=== PATIENT | female | born 1965 | race Caucasian/White ===

== ENCOUNTER 2025-04-09 14:43 | Outpatient (AMB) | payer OTHER, SELFPAY ==
--- NOTE | 2025-04-09 14:55 | A.OFFPC_ITS ---
Vital Signs 04/09/25 14:56 Height 5 ft Weight 188 lb 4 oz BMI 36.8 BP 130/80 Blood Pressure Location Lt brachial Position Sitting Respiration 16 Pulse 74 Pulse Source Pulse Oximeter Temp 97.5 F Temp Source Temporal Artery Scan Pulse Oximetry (%) 94 Oxygen Delivery Method Room Air Intake Visit Reasons: Re-establish care [employer] Operator Required: No Accompanied by: Self / Same As Patient Allergies morphine (Morphine) Allergy (Mild, Unverified 02/18/20 16:31) ITCHING Sulfa (Sulfonamide Antibiotics) Allergy (Mild, Unverified 02/18/20 16:31) HIVES tramadol Allergy (Unknown, Verified 06/26/12 00:00) pruritis fexofenadine (From [place]) Adverse Reaction (Intermediate, Verified 04/09/25 15:32) Chest Pain Medication List - Last Reconciled 04/09/25 by Rosalba Gomez MD acyclovir 400 mg PO TID albuterol sulfate 2.5 mg continuous nebulization Q6H PRN amlodipine 10 mg PO DAILY aripiprazole 2 mg PO DAILY PRN atorvastatin 20 mg PO DAILY blood sugar diagnostic (FreeStyle Lite Strips) As directed budesonide-formoterol 160-4.5 mcg/actuation 2 puffs inhalation BID cholecalciferol (vitamin D3) 25 mcg PO DAILY citalopram 10 mg PO DAILY citalopram mg PO ezetimibe 10 mg PO DAILY fluticasone propionate 50 mcg/actuation sprays intranasal ipratropium-albuterol 0.5 mg-3 mg(2.5 mg base)/3 mL 3 mL inhalation QID omeprazole 40 mg PO DAILY Tobacco use date assessed: 04/09/25 Dental Screening Dental Screen Date: 04/09/25 Did you have a dental visit in the last 12 months?: Yes Did you have a dental problem in the last 6 months where you did not have access to dental care?: No Was dental information given to patient?: Patient has dentist HPI HPI Comments History of Present Illness Details The patient is a 59-year-old female presenting to reestablish care. Urinary Tract Infection (Recurrent): Frequent UTIs since October, hospitalization due to severe infection, and recurrent symptoms managed by antibiotics with subsequent yeast infection. Urinalysis periodically indicates infection. Asthma-stable Intrusive Thoughts: Stress-induced intrusive thoughts, exacerbated by recent personal challenges. Abilify trialed, patient adjusted dosage due to side effects. Notes when she socrates es only 1mg had some benefit in symptoms. Stress-Induced Breakouts: Association of herpetic breakouts with stress, managed with acyclovir. Stressors include personal life events. Depression: Tendency to depressive episodes exacerbated by personal circumstances. Medication effective when adjusted to patient tolerance. Diabetes mellitus history- A1c measured at 5.8, indicating prediabetes. Past discussions about weight and its management. Vaginal Dryness: Related to menopause, contributing to UTI risk. Hormonal impact acknowledged. Family Stress: Stress related to granddaughter's recent mental health crisis. Sleep apnea- has not been compliant with cpap, will schedule sleep clinic appt Hyperlipidemia- on statin HTN- on amlodipine Vitamin d deficiency/anemia- due for repeat labs Social History: - Resides alone; a friend stayed for thr ee months, causing significant stress - Concerned about weight management; marla or interest in Ozempic for management - Personal stress related to a granddaug hter's mental health crisis Review of Systems - Respiratory: Denies nasal congestion a nd throat issues - Gastrointestinal: Reports intermittent heartburn; denies nausea or constipa tion - Genitourinary: Reports recurrent UTIs and vaginal dryness - Psychological: Reports occasional intr usive thoughts and depression Physical Exam - Ears- Bilateral cerumen impaction -Respiratory- Lungs clear bilaterally -Cardiovascular- Regular heart sounds, s oft murmur noted - Abdomen: SNTND, +BS - Extremities: no edema bilaterally Assessment and Plan 1. Urinary Tract Infection (Recurrent) - Follow-up with urogynecologist - Monitor symptoms 2. Intrusive Thoughts - Low-dose Abilify per pt tolerance - Stress management support 3. Stress-Induced Breakouts - Continue acyclovir as directed 4. Depression - Continue to monitor 5. Elevated Hemoglobin A1c indicating Pr ediabetes - Weight management plan and dietary geoffrey nges - Consider Ozempic if approved by insura nce 6. Vaginal Dryness - urogynecology consult pending 7. Sleep apnea- follow up with sleep med icieb 8. Recurrent infections- check immunoglo bulin levels Follow up in 3 months Discussion Notes I discussed with the patient the recurrence of urinary tract infections and the urogynecologist consultation to address persistent symptoms. We explored the use of Abilify for managing intrusive thoughts, ensuring a dosage that decreases side effects, and the continuity with stress management practices. We acknowledged the patient?s elevated A1c and prediabetes status, emphasizing weight management and dietary changes. The potential for Ozempic was contingent on insurance approval. Discussions included the management of vaginal dryness possibly via topical therapy, and stress was attributed to family issues that need parallel support. Patient Instructions - Continue taking Abilify at the dose yo u tolerate best. - Use acyclovir as needed for any break outs. - Work on diet and weight management to help with your blood sugar levels. - Discuss options for treating vaginal d ryness with your urogynecologist. - Focus on stress management techniques to ease overall stress. - Bring your CPAP machine to appointment s for further evaluation if needed. COUNT INCLUDES THE [facility] Medical History (Updated 04/09/25 @ 17:27 by Rosalba Gomez MD) Primary hypertension Vitamin D deficiency Recurrent infections Iron deficiency anemia Fibromyalgia UTI (urinary tract infection) Hyperlipidemia, unspecified Diabetes mellitus type 2 in obese Asthma Surgical History (Updated 04/07/25 @ 17:42 by Naya Baocn) History of colonoscopy (~08/25/18) Social History Housing: House Patient Tobacco Use Status: Former Tobacco user e-Cigarette/Vaping Use: Never Used service: No Current occupational status: disabled Questionnaire AUDIT C Alcohol Use Questionnaire (AUDIT-C) 1. How often do you have a drink containing alcohol?: Never 3. How often do you have six or more drinks on one occasion?: Never Total Score: 0 Physical exam (Primary Care) Vital Signs: Last Vital Signs Temp 97.5 F 04/09/25 14:56 Pulse 74 04/09/25 14:56 Resp 16 04/09/25 14:56 BP 130/80 04/09/25 14:56 Pulse Ox 94 04/09/25 14:56 Oxygen Delivery Method Room Air 04/09/25 14:56 BMI result Body Mass Index 36.8 Tobacco/Smoking Status: Tobacco use Status Tobacco use date assessed 04/09/25 04/09/25 15:05 Patient Tobacco Use Status Former Tobacco user 04/09/25 15:05 e-Cigarette/Vaping Use Never Used 04/09/25 15:05 Coding Level of Care Code Est Pt Level 4 (22519) Complex EM visit Add On G2211 Diagnoses Diabetes mellitus type 2 in obese E11.69; E66.9 Asthma, unspecified asthma severity, unspecified whether complicated, unspecified whether persistent J45.909 Asthma severity: unspecified severity Asthma persistence: unspecified Asthma complication type: unspecified Fibromyalgia M79.7 Hyperlipidemia, unspecified hyperlipidemia type E78.5 Hyperlipidemia type: unspecified Iron deficiency anemia, unspecified iron deficiency anemia type D50.9 Iron deficiency anemia type: unspecified iron deficiency Vitamin D deficiency E55.9 Assessment & Plan Assessment & Plan (1) Diabetes mellitus type 2 in obese: Code(s): E11.69 - Type 2 diabetes mellitus with other specified complication; E66.9 - Obesity, unspecified Category: Medical (2) Asthma: Code(s): J45.909 - Unspecified asthma, uncomplicated Category: Medical Qualifiers: Asthma severity: unspecified severity Asthma persistence: unspecified Asthma complication type: unspecified Qualified Code(s): J45.909 - Unspecified asthma, uncomplicated (3) Fibromyalgia: Code(s): M79.7 - Fibromyalgia Category: Medical (4) Hyperlipidemia, unspecified: Code(s): E78.5 - Hyperlipidemia, unspecified Category: Medical Qualifiers: Hyperlipidemia type: unspecified Qualified Code(s): E78.5 - Hyperlipidemia, unspecified (5) Iron deficiency anemia: Code(s): D50.9 - Iron deficiency anemia, unspecified Category: Medical Qualifiers: Iron deficiency anemia type: unspecified iron deficiency Qualified Code(s): D50.9 - Iron deficiency anemia, unspecified (6) Vitamin D deficiency: Code(s): E55.9 - Vitamin D deficiency, unspecified Category: Medical Plan Plan - Follow up with urogynecology for UTI - Continue Abilify at adjusted dose - Continue acyclovir for outbreaks - Monitor depression, consider psychiatry - Continue to monitor weight management for prediabetes Orders: Orders Ferritin Today D50.9 - Iron deficiency anemia, unspecified Vitamin D 25-OH Total Today E55.9 - Vitamin D deficiency, unspecified Complete Blood Count Auto Diff Today D50.9 - Iron deficiency anemia, unspecified, E11.69 - Type 2 diabetes mellitus with other specified complication, E66.9 - Obesity, unspecified, M79.7 - Fibromyalgia TSH reflex Free T4 Today E11.69 - Type 2 diabetes mellitus with other specified complication, E66.9 - Obesity, unspecified, E78.5 - Hyperlipidemia, unspecified, J45.909 - Unspecified asthma, uncomplicated, M79.7 - Fibromyalgia Hemoglobin A1c Today E11.69 - Type 2 diabetes mellitus with other specified complication, E66.9 - Obesity, unspecified, E78.5 - Hyperlipidemia, unspecified, J45.909 - Unspecified asthma, uncomplicated, M79.7 - Fibromyalgia Comprehensive Met. Panel Today E11.69 - Type 2 diabetes mellitus with other specified complication, E66.9 - Obesity, unspecified, E78.5 - Hyperlipidemia, unspecified, J45.909 - Unspecified asthma, uncomplicated, M79.7 - Fibromyalgia Lipid Panel Today E11.69 - Type 2 diabetes mellitus with other specified complication, E66.9 - Obesity, unspecified, E78.5 - Hyperlipidemia, unspecified, J45.909 - Unspecified asthma, uncomplicated, M79.7 - Fibromyalgia IRON PROFILE Today D50.9 - Iron deficiency anemia, unspecified, E78.5 - Hyperlipidemia, unspecified Immunoglobulin G Subclasses Today B99.9 - Unspecified infectious disease Medications: New carbamide peroxide 6.5% (Debrox) 5 drps otic (ears) BID 15 mL 0RF 4 days cetirizine (All Day Allergy (cetirizine)) 10 mg PO DAILY PRN 30 tabs 5RF allergy symptoms
[2025-04-09 14:56] VITALS: BP 130/80; PULSE 74; RESP 16; TEMP 36.4; O2SAT 94; BMI 36.8
--- OUTSIDE RECORDS SUMMARY | 2025-04-09 16:11 | XMS_ITS | Data Portability ---
Author Organization [facility] [employer] [facility] Address [address] [place] [phone] Care Team Providers Care Leather Cartridge Belt Maker Name Role Phone HIM CCA OTHER SANDEEP CHAPARRO Primary Care Provider [phone] Assessment Encounter Date Assessment Date Assessment LastModified by Organization Details LastModified Time 06/29/2024 06/29/2024 I provided real -time medical direction via phone for this encounter, and was available for additional phone based assistance as needed. I have reviewed and agree with the Assessment and Plan as documented by the Tax Record Clerk. We discussed the diagnostic uncertainty of home visits and the risk associated with this. The patient given the opportunity to ask questions. [email or web address] Not available 06/29/2024 18:56:15 Plan of Treatment Reminders Order Date Submit Date Provider Last Modified By Organization Details Last Modified Time Details Appointments None recorded. Lab rapid SARS CoV 2 Ag, QL IA, respiratory specimen 2024 [email or web address], [address] 18:57:21 rapid flu (A+B) 2024 025 [email or web address] [address], [address] 18:57:20 glucose, fingerstick , blood 2024 025 [email or web address] [address], [address] [place] [address] 18:57:21 Referral None recorded. Procedures None recorded. Surgeries None recorded. Imaging None recorded. Medication Orders ipratropium 0.5 mg-albutero l 3 mg (2.5 mg base)/3 mL nebulizatio n soln 2024 025 [email or web address] [id number], [address] [place], [address], 18:57:21 methylpredn isolone sod succ (PF) 125 mg/2 mL solution for injection 2024 025 [email or web address] [id number], [address] [facility] [place], [address], 18:57:20 albuterol sulfate 2.5 mg/3 mL (0.083 %) solution for nebulizatio n 2024 025 [email or web address] [id number], [address] [place], [address], 18:57:20 Patient TargetsNo targets recorded. Patient Instructions Encounter Date Encounter Id Patient Instructions Last Modified By Organization Details Last Modified Time 06/29/2024 [id number] oxygen therapy* [email or web address] Not availabl e 06/29/2024 19:00:10 Reason for Referral None Reported. Results Created Date Observation Date Name Description Value Unit Range Abnormal Flag Note LastModifiedBy Organization Detail LastModifiedTime 06/29/1906/29/2024 gluco se, finge rstic k, blood Blood Glucose: mg/dl 128 Not Available [facility] [address] [place] [address], [phone] 06/29/2024 15:58:45 06/29/1906/29/2024 rapid flu (A+B) Flu negati ve Not Available [facility] ed [address] [place] [address], [phone] 06/29/2024 15:58:41 06/29/1906/29/2024 rapid SARS CoV 2 Ag, QL IA, respi rator y speci men rapid SARS CoV 2 Ag, QL IA, respiratory specimen negati ve Not Available Main - [facility] ed [address] [place] [address], [address] 06/29/2024 15:58:40 Result Notes None recorded. Medical Equipment None Reported. Allergies Allergen ID Allergen Name Allergen Category Reaction Reaction Severity Criticality Documentation Date Start Date Code Code System Note Provider Name and Address Organization Details Recorded Time 69025 sulfameth oxazole medicatio n Not available Not available Not available 06/29/2024 80316 RxNorm Bactr im Millie King MD [address] [place] [address],[address], [place], [address], [facility] 15:56:06 64646 acetamino phen / oxycodone medicatio n Not available Not available Not available 06/29/2024 90168 3 RxNorm Not Available [facility] production 15:02:51 29978 Lamictal medicatio n Not available Not available Not available 06/29/2024 60922 2 RxNorm Not Available [facility] 15:02:51 46535 Zoloft medicatio n Not available Not available Not available 06/29/2024 89920 RxNorm Millie King MD [address] [place] [address],[address], [place], [address], [employer] 15:56:10 Medications Name Sig Start Date Stop Date Status Note LastModified by Organization Details LastModified Time Vitamin B-2 100 mg tablet active Not Available Not Available Not Available atorvastatin 20 mg tablet active Not Available Not Available Not Available ipratropium 0.5 mg-albuterol 3 mg (2.5 mg base)/3 mL nebulization soln Inhale 3 mL by nebulizatio n route. 2024 active Not Available Not Available Not Avai lable albuterol sulfate 2.5 mg/3 mL (0.083 %) solution for nebulization Inhale 3 mL by nebulizatio n route. 2024 active Not Available Not Available Not Avai lable cetirizine 10 mg tablet active Not Available Not Available Not Available atorvastatin 10 mg tablet active Not Available Not Available Not Available citalopram 10 mg tablet active Not Available Not Available Not Available prednisone 20 mg tablet TAKE 2 TABLETS BY MOUTH EVERY DAY FOR 5 DAYS active Not Available Not Available No t Available penicillin V potassium 500 mg tablet TAKE 1 TABLET BY MOUTH TWICE A DAY WITH FOOD FOR 10 DAYS active Not Available Not Available No t Available clopidogrel 75 mg tablet active Not Available Not Available Not Available omeprazole 40 mg capsule,agrrett yed release active Not Available Not Available Not Available ketorolac 10 mg tablet TAKE 1 TABLET BY MOUTH EVERY 6 HOURS FOR PAIN active Not Available Not Available No t Available citalopram 20 mg tablet active Not Available Not Available Not Available amlodipine 10 mg tablet active Not Available Not Available Not Available fluticasone propionate 50 mcg/actuatio n nasal spray,suspen jimmy active Not Available Not Available Not Available amoxicillin 875 mg-potassium clavulanate 125 mg tablet TAKE 1 TABLET BY MOUTH TWICE A DAY FOR 7 DAYS, TAKE WITH FOOD active Not Available Not Available No t Available ezetimibe 10 mg tablet active Not Available Not Available No t Available cyclobenzapr ine 5 mg tablet TAKE 1 TABLET BY MOUTH THREE TIMES A DAY NEEDED FOR MUSCLE SPASM active Not Available Not Available No t Available FreeStyle Lite Strips active Not Available Not Available Not Available levocetirizi ne 5 mg tablet TAKE 1 TABLET BY MOUTH EVERY EVENING active Not Available Not Available No t Available methylpredni solone sod succ (PF) 125 mg/2 mL solution for injection Take 125 mg by injection route. 2024 active Not Available Not Available Not Avai lable Trulicity 1.5 mg/0.5 mL subcutaneous pen injector INJECT 0.5 ML SUBCUTANEOU S INJECTION EVERY WEEK, ROTATE INJECTION SITES active Not Available Not Available No t Available Trulicity 0.75 mg/0.5 mL subcutaneous pen injector active Not Available Not Available Not Available Ozempic 1 mg/dose (4 mg/3 mL) subcutaneous pen injector INJECT 1 MG SUBCUTANEOU SLY EVERY WEEK. DOSE CHANGE 1MG ONCE PER WEEK active Not Available Not Available No t Available Ozempic 0.25 mg or 0.5 mg (2 mg/3 mL) subcutaneous pen injector INJECT 0.5 MG SUBCUTANEOU S INJECTION EVERY WEEK *ROTATE INJECTION SITES active Not Available Not Available No t Available Vitals Date Recorded Respiratory rate Oxygen saturation Oxygen saturation in Arterial blood by Pulse oximetry Heart rate Body temperature Body weight Systolic And Diastolic Provider Name and Address Organization Details Last Updated DateTime 5 26 /min 89 % 89 % 90 /min 98.5 [degF] 18573.6 4 g 124/67 mm[Hg] Not Available [facility] 16:19:41 Social History None recorded. Functional Status None recorded. Mental Status None recorded. Family History Nothing Reported. Medical History No medical history recorded. Gynecological HistoryNo gynecological history recorded. Obstetrics History GPAL:G 0 P 0 0 0 0 Past Encounters Encounter ID Performer Location Encounter Start Date Encounter Closed Date Diagnosis/Indication Diagnosis SNOMED-CT Code Diagnosis ICD10 Code Diagnosis IMO Codes Diagnosis Note [id number] Millie King MD Main - [facility] [address] [place] [phone] 06/29/2024 15:53:16 06/29/2024 21:27:17 Upper respiratory infection 90135939 J06.9 With acute exacerbati on of asthma. After DuoNeb then albuterol lungs were clear oxygen saturation improved however medic then ambulated the patient and she became tachypneic and her oxygen saturation dropped down to 85% medic reported to me increased to 89% with rest. I requested the medic put the patient on oxygen to keep her saturation greater than 93% and advised the patient due to hypoxia with ambulation it is too risky to leave her at home without oxygen-ris k of syncope//s he needs a chest x-ray and further treatment than we can provide in the home. Patient requested to go to [facility] deirdre. Medic called [facility], I attempted to call report to [facility] ED Xpect, after 2 prolonged holds times I was disconnect ed twice Health Concerns Section Related Observation LastModified by Organization Detai ls LastModified Time None Recorded Concern Status LastModified by Organization Details LastModified Time None Recorded Advance Directives Directive None Recorded Payers Insurance Date Sequence Insurance Name Policy Number Policy Almonte Covered Member ID Almonte Member ID Guarantor Name 06/29/2024 1 [facility] - DOS ON OR AFTER 2022 - DUAL ELIGIBLE - INTERMEDIATE OPTIONS AND ONE CARE (MEDICARE REPLACEMENT/ADV ANTAGE - HMO) Malka Villegas [id number] Malka Villegas Notes Date Note Type Note Provider Name and Address Organization Details Recorded Time 06/29/2024 text/html ROS as noted in the HPI [facility] Nurse Triage Notes (Tammy Mireles - RN): Patient Reports: History of asthma, increased use of inhaler; Cough; Shortness of breath with exertion Denies: Increased work of breathing/labored with or without fever Unable to speak in full sentences without distress Discoloration of skin -cyanosis Needs to sleep sitting up, can t catch breath Shortness of breath in setting of confusion Chief Complaints: Breathing problems, Headache, Fever/chills, Common cold symptoms, Cough PMH: Asthma, Myocardial Infarction, Diabetes Mellitus Type 2 PMH Reviewed at 06/29/2024 - : Allergies Reviewed at 06/29/2024: Comments: Started with body aches and fever on Saturday, then developed cough on Saturday. Patient is experiencing dyspnea with exertion. SOB noted with talking. No distress currently. Using Proair as needed. Fever since Saturday. States Temp up to 103. Taking Tylenol/Ibuprofen as needed. Medication is helping to control temp. + chills. 02 sat 92% RA. Education provided on the response time and the member was advised to monitor reported s/s and seek emergency treatment if needed. Tax Record Clerk Organization Information for Juana Barragan Business Legal Name: [employer]. Address: [address] [place] [address], Leather Stamper: Ritesh Smith MD CLIA No.: [id number] Tax Record Clerk POC Test Results from Juana Barragan Blood Glucose Measurement (16:19:45) Blood Glucose: 128 mg/dL Rapid COVID antigen (16:19:48) COVID: - Attachments uploaded as part of this test result can be found under Documents section. Rapid influenza antigen (16:19:51) Flu: - Attachments uploaded as part of this test result can be found under Documents section. .................. .................. .................. .................. .................. .................. .................. ............... Tax Record Clerk Note From Juana Barragan: Disp for the 59 year old female cc shortness of breath/flu symptoms. Upon arrival patient opened front door and walked back to couch. Patient is PATIÑO x 4 GCS x 15 having difficulty speaking due to shortness of breath, skin pink/warm/dry, strong radial pulse. Patient's vtls taken immediately' Sp02 89% on RA respirations 26-30 bpm with exertion. [facility] [place]. King called immediately and informed of findings. Patient denies chest pain, complains of shortness of breath, denies abdominal pain, denies n/v/d, denies pain, complains of fevers. Patient reports shortness of breath for a week and flu symptoms for over a week. Patient reports fever of 103 degrees F this late morning and took 1000 mgs of tylenol around 14:00 today. Patient complains of body aches, chills. Patient has a history of asthma and has been taking Proair inhaler with little relief. Patient reports Sp02 as low as 85% - 92%. Patient reports dry painful coughing with no phlegm. Patient's placed on DuoNeb immediately after lungs sounds accessed and presented diminished in all hughes. Monitor applied to patient, vtls stated above. Lung sounds diminished in all hughes, + PERRL, good cap refills, skin pink/warm/dry, strong radial pulse, temp. 98.5, - FAST-ED, end tidal 25 mmgh, POC 128. Patient administered addition albuterol updraft as requested by Dr. King. Unable to obtain I.V. access due to poor peripheral vasculature. Patient reports history of difficulty I.V. access. Patient administered 125mgs of solu-medrol I.M. to left deltoid. Consulted with [facility]. King. Patient's Sp02 decreased with walking to 87-89% on RA after updraft treatments with increased work of breathing and tachycardia. Dr. King advised patient that she needs a chest xray and further medical treatments. Dr. King explained to patient that she is at risk of falling and becoming unresponsive due to shortness of breath. Patient agreed to be transported to [facility]. Local [employer] architect EMS called. Patient care, report and paperwork transferred to [facility] Tax Record Clerk. All times approx. .................. .................. .................. .................. .................. .................. .................. ............... [facility] Consulted: Millie King .................. .................. .................. .................. .................. .................. .................. ............... Disposition: Fulfilled Millie King MD [address] [facility],[address] [facility], [place], [address], [employer] [facility] OLIVER[facility] 06/29/2024 19:00:54 OBGyn Episode No OBEpisode recorded.
== END 2025-04-09 15:53 | disposition home or self-care (01) ==
LOC: HO.HMCHD 14:44
PROVIDERS: PCP Internal Medicine; Visit Provider Internal Medicine
DX: E11.69 Type 2 diabetes mellitus with other specified complication (principal); E66.9 Obesity, unspecified; J45.909 Unspecified asthma, uncomplicated; M79.7 Fibromyalgia; E78.5 Hyperlipidemia, unspecified; D50.9 Iron deficiency anemia, unspecified; E55.9 Vitamin D deficiency, unspecified

== ENCOUNTER → 2025-04-09 14:43 | Outpatient (BNVA) | payer OTHER, SELFPAY | PROVIDERS: PCP Internal Medicine; Visit Provider Internal Medicine | DX: E11.69 Type 2 diabetes mellitus with other specified complication (principal); E66.9 Obesity, unspecified; Z68.36 Body mass index [BMI] 36.0-36.9, adult; J45.909 Unspecified asthma, uncomplicated; M79.7 Fibromyalgia; E78.5 Hyperlipidemia, unspecified; D50.9 Iron deficiency anemia, unspecified; E55.9 Vitamin D deficiency, unspecified; F32.A Depression, unspecified; N95.1 Menopausal and female climacteric states; G47.30 Sleep apnea, unspecified; I10 Essential (primary) hypertension; Z79.899 Other long term (current) drug therapy; Z87.440 Personal history of urinary (tract) infections | CPT/HCPCS: 99212 ==

== ENCOUNTER 2025-04-27 09:02 | Outpatient (REF) | payer OTHER, SELFPAY ==
--- OUTSIDE RECORDS SUMMARY | 2025-04-27 09:51 | XMS_ITS | Data Portability ---
Author Organization [facility] [employer] [facility] Address [address] [place] [phone] Care Team Providers Care Grounds Maintenance Manager Name Role Phone HIM CCA OTHER SANDEEP CHAPARRO Primary Care Provider [phone] Assessment Encounter Date Assessment Date Assessment LastModified by Organization Details LastModified Time 06/29/2024 06/29/2024 I provided real -time medical direction via phone for this encounter, and was available for additional phone based assistance as needed. I have reviewed and agree with the Assessment and Plan as documented by the Partition Setter. We discussed the diagnostic uncertainty of home visits and the risk associated with this. The patient given the opportunity to ask questions. [email or web address] Not available 06/29/2024 18:56:15 Plan of Treatment Reminders Order Date Submit Date Provider Last Modified By Organization Details Last Modified Time Details Appointments None recorded. Lab rapid SARS CoV 2 Ag, QL IA, respiratory specimen 2024 025 [email or web address] [address], [address] 18:57:21 rapid flu (A+B) 2024 025 [email or web address] [address], [address] 18:57:20 glucose, fingerstick , blood 2024 025 [email or web address] [address], [address] [place] [address] 18:57:21 Referral None recorded. Procedures None recorded. Surgeries None recorded. Imaging None recorded. Medication Orders ipratropium 0.5 mg-albutero l 3 mg (2.5 mg base)/3 mL nebulizatio n soln 2024 025 [email or web address] [id number], [address] [place], [address], 18:57:21 methylpredn isolone sod succ (PF) 125 mg/2 mL solution for injection 2024 025 [email or web address] [id number], [address] [facility] [place], [address], 18:57:20 albuterol sulfate 2.5 mg/3 mL (0.083 %) solution for nebulizatio n 2024 025 [email or web address] [id number], [address] [place], [address], 18:57:20 Patient TargetsNo targets recorded. Patient Instructions Encounter Date Encounter Id Patient Instructions Last Modified By Organization Details Last Modified Time 06/29/2024 [id number] oxygen therapy* [email or web address] Not availabl e 06/29/2024 19:00:10 Reason for Referral None Reported. Results Created Date Observation Date Name Description Value Unit Range Abnormal Flag Note LastModifiedBy Organization Detail LastModifiedTime 06/29/1906/29/2024 gluco se, finge rstic k, blood Blood Glucose: mg/dl 128 Not Available [facility] [address] [place] [address], [phone] 06/29/2024 15:58:45 06/29/1906/29/2024 rapid flu (A+B) Flu negati ve Not Available [facility] [address] [place] [address], [phone] 06/29/2024 15:58:41 06/29/1906/29/2024 rapid SARS CoV 2 Ag, QL IA, respi rator y speci men rapid SARS CoV 2 Ag, QL IA, respiratory specimen negati ve Not Available Main - [facility] ed [address] [place] [address], [phone] 06/29/2024 15:58:40 Result Notes None recorded. Medical Equipment None Reported. Allergies Allergen ID Allergen Name Allergen Category Reaction Reaction Severity Criticality Documentation Date Start Date Code Code System Note Provider Name and Address Organization Details Recorded Time 94915 sulfameth oxazole medicatio n Not available Not available Not available 06/29/2024 74069 RxNorm Bactr im Millie King MD [address] [place] [address],[address], [place], [phone], [employer] 15:56:06 74194 acetamino phen / oxycodone medicatio n Not available Not available Not available 06/29/2024 96773 3 RxNorm Not Available [facility] - production 15:02:51 75579 Lamictal medicatio n Not available Not available Not available 06/29/2024 31550 2 RxNorm Not Available [facility] - production 15:02:51 11762 Zoloft medicatio n Not available Not available Not available 06/29/2024 54788 RxNorm Millie King MD [address] [place] [address],[address], [place], [address], [employer] 15:56:10 Medications Name Sig Start Date Stop [...] Not Available Not Available omeprazole 40 mg capsule,garrett yed release active Not Available Not Available [...] Vitals Date Recorded Respiratory rate Oxygen saturation Heart rate Body temperature Body weight Systolic And Diastolic Provider Name and Address Organization Details Last Updated DateTime 5 26 /min 89 % 90 /min 98.5 [degF] 67625.6 4 g 124/67 mm[Hg] Not Available [facility] 5 16:19:41 Social History None recorded. Functional Status None recorded. Mental Status None recorded. Family History Nothing Reported. Medical History No medical history recorded. Gynecological HistoryNo gynecological history recorded. Obstetrics History GPAL:G 0 P 0 0 0 0 Past Encounters Encounter ID Performer Location Encounter Start Date Encounter Closed Date Diagnosis/Indication Diagnosis SNOMED-CT Code Diagnosis ICD10 Code Diagnosis IMO Codes Diagnosis Note [id number] Millie King MD Main - [address] [phone] 06/29/2024 15:53:16 06/29/2024 21:27:17 Upper respiratory infection 85225482 J06.9 With acute exacerbati on of asthma. [...] the home. Patient requested [facility] go to [facility]. Medic called [facility], I attempted to call report to [facility] ED Xpect, after 2 prolonged holds times I was disconnect ed twice Health Concerns Section Related Observation LastModified by Organization Detai ls LastModified Time None Recorded Concern Status LastModified by Organization Details LastModified Time None Recorded Advance Directives Directive None Recorded Payers Insurance Date Sequence Insurance Name Policy Number Policy Almonte Covered Member ID Almonte Member ID Guarantor Name 06/29/2024 1 [facility] - DOS ON OR AFTER 2022 - DUAL ELIGIBLE - PENITENTIARY OPTIONS AND ONE CARE (MEDICARE REPLACEMENT/ADV ANTAGE - HMO) Malka Villegas [id number] Malka Villegas Notes Date Note Type Note [...] s/s and seek emergency treatment if needed. Partition Setter Organization Information for Juana Barragan Business Legal Name: [employer]. Address: [address] [place] [address], Diesel Truck Technician: Ritesh Smith MD CLIA No.: [id number] Partition Setter POC Test Results from Juana Barragan Blood Glucose Measurement (16:19:45) Blood Glucose: 128 mg/dL Rapid COVID antigen (16:19:48) COVID: - Attachments uploaded as part of this test result can be found under Documents section. Rapid influenza antigen (16:19:51) Flu: - Attachments uploaded as part of this test result can be found under Documents section. .................. .................. .................. .................. .................. .................. .................. ............... Partition Setter Note From Juana Barragan: Disp for the 59 year old female cc shortness of breath/flu symptoms. Upon arrival patient opened front door and [facility] Patient is PATIÑO x 4 GCS x 15 having difficulty speaking due to shortness of breath, skin pink/warm/dry, strong radial pulse. Patient's vtls taken immediately' Sp02 89% on RA respirations 26-30 bpm with exertion. [facility] Dr. King called immediately and informed of [...] solu-medrol I.M. to left deltoid. Consulted with [facility] dr. King. Patient's Sp02 decreased with walking to 87-89% on RA after updraft treatments with increased work of breathing and tachycardia. Dr. King advised patient that she needs a chest xray and further medical treatments. Dr. King explained to patient that she is at risk of falling and becoming unresponsive due to shortness of breath. Patient agreed to be transported to [facility]. Local utilities equipment repairer EMS called. Patient care, report and paperwork transferred to [facility] Partition Setter. All times approx. .................. .................. .................. .................. .................. .................. .................. ............... [facility] Consulted: Millie King .................. .................. .................. .................. .................. .................. .................. ............... Disposition: Fulfilled Millie King MD [address] [facility],[address] [facility], [place], [phone], [employer] - KASSY PATTERSON 06/29/2024 19:00:54 OBGyn Episode No OBEpisode recorded.
[2025-04-27 13:47] LABS: MANUAL DIFF FLAG NO
[2025-04-27 14:16] LABS: Hematocrit 38.2 % (37.0-47.0); Hemoglobin 12.1 g/dl (12.0-16.0); Imm Gran Abs Auto 0.04 X10*3/uL (0.00-0.03); Imm Gran Pct Auto 0.6 % (0.0-0.4); Lymphocytes Absolute Auto 2.2 X10*3/uL (1.2-4.9); Mean Corpuscular HGB Conc 31.7 g/dl (31.0-35.0); Mean Corpuscular Hemoglobin 26.0 pg (27.0-33.0); Mean Corpuscular Volume 82.0 fL (80.0-98.0); NRBC Abs Auto 0.000 X10*3/uL (0.0-0.012); NRBC Pct Auto 0.0 /100WBC (0.0-0.2); Platelet Count 272 X10*3/uL (160-400); Red Blood Count 4.66 X10*6/uL (4.20-5.50); White Blood Count 7.3 X10*3/uL (4.8-10.8)
[2025-04-27 14:29] LABS: Alanine Aminotransferase 35 U/L (0-31); Albumin Level 4.4 g/dL (3.5-5.0); Alkaline Phosphatase 79 U/L (39-117); Anion Gap 10 (12-20); Aspartate Amino Transferase 25 U/L (5-31); Blood Urea Nitrogen 15 mg/dL (9-16); Calcium 9.9 mg/dL (8.4-10.2); Carbon Dioxide 28 mmol/L (22-29); Chloride 108 mmol/L (96-108); Cholesterol 166 mg/dL (<200); Estimated Glomerular Filt Rate > 60; HDL Cholesterol 51 mg/dL (>40); Iron 91 mcg/dL (30-160); Percent Iron Saturation 27 % (15-50); Potassium 4.1 mmol/L (3.3-5.1); Sodium 142 mmol/L (135-145); Total Iron Binding Capacity 334 mcg/dL (228-428); Total Protein 7.0 g/dL (6.5-8.0); Triglycerides 121 mg/dL (<150); Unsaturated Iron Binding 243 ug/dL
[2025-04-27 14:33] LABS: Ferritin 11 ng/mL (10-250)
[2025-04-28 11:14] LABS: Immunoglobulin G Subclass 1 607 mg/dL (382-929); Immunoglobulin G Subclass 2 243 mg/dL (241-700); Immunoglobulin G Subclass 3 55 mg/dL (22-178); Immunoglobulin G Subclass 4 59.6 mg/dL (4-86); Immunoglobulin G Total 1022 mg/dL (600-1540)
== END 2025-04-27 09:03 | disposition home or self-care (01) ==
LOC: HO.HKASLDS 09:02
PROVIDERS: PCP Internal Medicine; Visit Provider Internal Medicine
DX: E11.69 Type 2 diabetes mellitus with other specified complication (principal); E66.9 Obesity, unspecified; M79.7 Fibromyalgia; D50.9 Iron deficiency anemia, unspecified; E78.5 Hyperlipidemia, unspecified; J45.909 Unspecified asthma, uncomplicated; B99.9 Unspecified infectious disease; E55.9 Vitamin D deficiency, unspecified
CPT/HCPCS: 36415; 80053; 80061; 82306; 82728; 82784; 83036; 83540; 84443; 85025